=== PATIENT | female | born 1990 | race Caucasian/White ===

== ENCOUNTER 2025-02-13 19:36 | Emergency (ER) | payer MEDICARE, OTHER, SELFPAY ==
[2025-02-13 19:46] VITALS: BP 110/73
[2025-02-13 22:44] VITALS: BMI 22.5
[2025-02-13 22:45] VITALS: BP 116/72
--- NOTE | 2025-02-13 22:57 | ED.GENMED ---
History of Present Illness
General
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
Source: patient
Exam Limitations: none
Time Seen by Provider: 02/13/25 22:55
Nursing documentation reviewed up to this point in time: agreed with
History of Present Illness
History of Present Illness:
Note:
CHIEF COMPLAINT(S)
The patient presents with a painful bump in the gluteal region.
HISTORY OF PRESENT ILLNESS
The patient is a 35-year-old female with a past medical history of lymphoma in remission, skin cancer, ADHD, bipolar disorder, who presents to the emergency department today with concerns of painful lumps in her gluteal region which started
approximately 2 days ago. She describes the pain as intense, stating the bump is 'hard to sit on.' There is no associated fever, nausea, or vomiting. The patient reports burning upon urination for several days and believes she has a urinary tract
infection. She has been treating this infection with ibuprofen and has not been on antibiotic. She no longer follows with oncology. She denies any pain radiating to the back or elsewhere. The patient has a history of lymphoma, currently in
remission, and has not undergone any treatment for it recently. Patient reports that she takes dexamethasone to keep the lymphoma in remission. She reports no recent contact with sick individuals. She denies any hematuria. She denies any
unintentional weight loss or night sweats.
SOCIAL DETERMINANTS AFFECTING HEALTH
The patient reported using marijuana and ibuprofen for symptom relief.
PAST MEDICAL HISTORY
History of lymphoma, currently in remission. The patient has also had skin cancer removed.
MEDICATIONS
She mentions taking dexamethasone intermittently for cancer management.
PHYSICAL EXAM
Nursing notes reviewed and vital signs reviewed.
General: Patient is well appearing and in no acute distress; non-toxic. Appears older than stated age.
Skin: Warm and dry, no rashes or lesions
Head: Normocephalic, atraumatic
Eyes: Sclera non-icteric. EOMs intact.
Cardiac: Regular rate and rhythm, no murmurs
Peripheral Vascular: No lower extremity swelling or edema.
Pulm: Normal respiratory effort, no wheezes, rales, rhonchi
Abdomen: No abdominal tenderness to palpation, tender bilateral inguinal lymph lymph nodes
Neuro: CN II-XII intact, no focal neurologic deficits.
Psychiatric: Appropriate mood and affect.
PROBLEM LIST
- Acute: Painful bump in the inguinal region, burning with urination
- Chronic: Lymphoma (remission), history of skin cancer
PLAN
- Suspect groin mass secondary to reactive inguinal lymphadenopathy from suspected UTI, however considering patient's history of lymphoma we will obtain CT scan of the abdomen and pelvis
- Perform blood work and urinalysis.
- Consider applying a warm compress to the affected area for symptomatic relief.
DIFFERENTIAL DIAGNOSIS
The Differential Diagnosis includes, in no particular order and is not limited to:
1. Abscess
2. Inflamed lymph node
3. Cyst
4. Cellulitis
5. Reactive lymphadenopathy
6. Pilonidal cyst
7. Bartholins cyst
8. Muscle strain
9. Lipoma
10. Hematoma
CARE-UPDATE
02/14/25 - 12:39 am
Patient currently in CAT scan for further assessment, awaiting results
CHART REVIEW
Reviewed ER physician documentation from 07/22/2021, patient seen for cough and diagnosed with bronchitis
Reviewed procedural data from 08/02/2018 patient had her port removed
MDM/DISPOSITION
The patient is a 35-year-old female with a past medical history of lymphoma in remission, skin cancer, ADHD, bipolar disorder, who presents to the emergency department today with concerns of painful lumps in her gluteal region which started
approximately 2 days ago. Plan as above. Labs reviewed, CBC and CMP unremarkable. Urinalysis does show blood with few bacteria and leukocyte Estrace.
CAT scan reveals moderate adenopathy in the right external iliac chain and inguinal region with encinas fat stranding which may reflect cellulitis with lymphadenitis. On exam, there is no evidence of erythema or obvious signs of cellulitis. Suspect
reactive lymphadenopathy secondary to urinary tract infection. Will treat with Keflex. Although, considering patient's history of lymphoma, did stress the importance of repeat imaging to ensure resolution and advised the patient should follow-up
with her oncologist that she saw previously in the past. Based on chart review, there are concerns with some financial notations to care although patient does note that she does have insurance. She lacks a primary care provider. Did provide
follow-up with primary care and also place a case management consult so that she will be called and there will be assistance in facilitating outpatient follow-up. CAT scan also mentions a gallstone in the gallbladder and gallbladder wall thickening
however clinical suspicion for cholecystitis is low and there is normal LFTs and normal bili bilirubin. Patient stable for discharge. Discussed strict return precautions.
Past History
Past History
ED Past Medical History: Asthma, Cancer (Lymphoma), Psychiatric (bipolar) and Other (Lymphoma with lesions in her blood, bone, skin tumors treated with chemotherapy and radiation in and recurrent in 2017 with only one dose of chemotherapy
in 2017 thus far. States 'I'm cancer free.')
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
Social History
Tobacco: Smoker (3 ppd)
Alcohol: None
Drug: None
Personal: Single
Living: homeless
Employment: Public assistance
Family History
Family History: Other (n/c- no known fam hx of cancer per pt)
Review of Systems
Review of Systems
All Other Systems: ROS reviewed and negative except as documented in HPI and ROS
Phy Exam
Physical Exam
Physical Exam:
see hpi
Course
Orders/Labs/Results
Orders:
Orders
02/13/25 23:09
Ketorolac [Toradol] 15 mg IV NOW STA
02/13/25 23:10
Test Result ONCE
02/13/25 23:11
0.9% Sodium Chloride 500 ml [Nss] 500 ml IV BOLUS
02/13/25 23:25
Complete Blood Count/With Diff Urgent
Comprehensive Metabolic Panel Urgent
Lipase Urgent
, Urine Qualitative Screen [HCG, Urine Qualitative Screen] Urgent
Date Specimen was Collected: 02/13/25
Time Specimen was Collected: 23:16
Urinalysis Reflex To Culture Urgent
Date Specimen was Collected: 02/13/25
Time Specimen was Collected: 23:16
Urine Microscopic Reflex Cult Urgent
Urine Culture Urgent
LYLE Source: U
Specimen Description:
Date Specimen was Collected: 02/13/25
Time Specimen was Collected: 23:16
02/14/25
CT Abd/pelvis W Iv Cont Urgent
Reason For Exam: b/l inguinal lymphadenopathy, hx of lymphoma
02/14/25 02:04
Case Management Consult ONCE
Case Management Consult: Discharge Planning
Comment: -financial limitations
-facilitating outpatient follow up with oncology
-hx of lymphoma
-acute lymphadenitis today, will need repeat imaging
Abnormal Lab Results
02/13/25
23:25
Absolute Monos (auto) 0.7 H 10^3/uL
(0.1-0.6)
Monocytes % 9.4 H %
(1.7-9.3)
Glucose 100 H mg/dl
(70-99)
Ur Occult Blood Reflex 1+ A
(Negative)
Leukocyte Esterase Rfl 2+ A
(Negative)
Urine RBC 3-6 A /HPF
(0-2)
Urine Bacteria (Reflex) Few A
(Negative)
02/13/25 23:25
02/13/25 23:25
Vital Signs
Initial and Last Documented VS:
Initial Vital Signs
Temp Pulse Resp BP Pulse Ox
98.7 F 86 18 110/73 100
02/13/25 19:46 02/13/25 19:46 02/13/25 19:46 02/13/25 19:46 02/13/25 19:46
Last Documented Vital Signs
Temp Pulse Resp BP Pulse Ox
98.7 F 86 18 122/69 99
02/13/25 19:46 02/13/25 19:46 02/13/25 19:46 02/13/25 23:00 02/14/25 00:01
*Pulse Oximetry
SaO2: 100
Oxygen Mode of Delivery: Room air
Patient hypoxic: no
*Critical Care Note
Total Time (30-74mins, 75-104mins- exclusive of procedures): Not Applicable
ED Attending Note
-
Portions of this chart may have been created with voice recognition software.� Occasional wrong word or��sound alike� substitutions may have occurred due to the inherent limitations of voice recognition software.
Discharge Plan
Departure
Patient Disposition: Home (Routine Discharge)
Date of Disposition: 02/14/25
Time of Disposition: 02:12
Patient with high blood pressure during this ER visit?: No
Condition: Good
Discharge Problem:
Acute inguinal lymphadenitis, Urinary tract infection
Instructions: Urinary Tract Infection, Adult (DC), Swollen lymph nodes in adults
Prescriptions:
New
cephalexin 500 mg capsule
500 mg PO TID 7 Days Qty: 21 0RF
No Action
Bactrim:
1 tab PO MOWEFR
Depakote:
1 tab PO DAILY
Dexamethasone
1 tab PO MO
mupirocin 22 GM ointment
22 gm topical TID Qty: 1 0RF
ibuprofen 600 MG tablet
600 mg PO Q6 Qty: 20 0RF
sulfamethoxazole-trimethoprim 1 TABLET tablet
1 tab PO BID Qty: 10 0RF
mupirocin 22 GM ointment
22 gm TP TID Qty: 22 0RF
clindamycin palmitate HCl [Clindamycin Pediatric] 75 MG/5 ML recon soln
150 mg PO TID Qty: 200 0RF
doxycycline hyclate 100 MG capsule
100 mg PO BID Qty: 20 0RF
Referrals:
Ana Rosa Byrd MD [Active, Hematology / Oncology] - Call in 1-3 days for appt
Frank Cao DO [Active, Family Practice] - Follow up in 5-7 days
NONE,* [Family Provider, Internal Medicine]
Activity Restrictions/Additional Instructions:
Keflex has been sent to your pharmacy. Please take 1 tablet 3 times daily for 7 days.
As discussed, please follow-up with your primary oncologist for repeat imaging.
Please establish care with a primary care provider.
PLEASE RETURN TO THE EMERGENCY DEPARTMENT SHOULD YOU DEVELOP FEVERS OR CHILLS, NIGHT SWEATS, EXPECTED WEIGHT LOSS, INTRACTABLE NAUSEA OR VOMITING, CHEST PAIN OR SHORTNESS OF BREATH, FLANK PAIN, OR ANY OTHER SIGNS OR SYMPTOMS CONCERNING TO YOU.
Interventions
Interventions:
*Risk Screen - Suicide Last Done: 02/13/25 19:46
*General Assessment Last Done: 02/13/25 22:46
*Neglect/Abuse Screening Last Done: 02/13/25 19:46
*ED- Fall Risk Assessment Last Done: 02/13/25 22:46
*ED COVID-19 Vaccine History Last Done: 02/13/25 22:46
*Nursing Disposition Last Done: 02/14/25 02:31
ED-Female Genitourinary Assessment Last Done: 02/13/25 22:46
Discharge Date and Time
Discharge Date/Time: 02/14/25 02:35
Print Language: LATVIAN
[2025-02-13 23:00] VITALS: BP 122/69
[2025-02-13] MEDS: NSS 500 IV (23:28)
[2025-02-13] MEDS: TORADOL 15 MG IV (23:29)
[2025-02-13 23:43] LABS: Urine Character Clear (Clear)
[2025-02-13 23:44] LABS: Hematocrit 38.4 % (37.0-47.0); Hemoglobin 13.6 g/dL (12.0-16.0); Mean Corp Hgb Conc. 35.4 g/dL (33.0-37.0); Mean Corpuscular Volume 86.5 fL (81.0-99.0); Nucleated Red Blood Cells % 0 %; Platelet Count 166 10^3/uL (130-400); Red Cell Dist. Width 12.4 % (11.5-14.5)
[2025-02-13 23:47] LABS: HCG, Urine Qualitative Screen Negative
[2025-02-14 00:02] LABS: ALT (SGPT) 16 U/L (0-35); AST (SGOT) 16 U/L (14-36); Albumin 4.2 g/dl (3.5-5.0); Alkaline Phosphatase 57 U/L (38-126); Blood Urea Nitrogen 10 mg/dl (7-17); Calcium 9.1 mg/dl (8.4-10.2); Carbon Dioxide 27 mmol/L (22-30); Chloride 106 mmol/L (98-107); Estimated Creatinine Clearance 116 ml/min; Glucose 100 mg/dl (70-99); Lipase 49 U/L (23-300); Potassium 3.8 mmol/L (3.5-5.1); Sodium 137 mmol/L (135-145); Total Protein 6.5 g/dl (6.3-8.2); eGFR > 60.00
[2025-02-14 00:20] LABS: Urine Squamous Cell >30 /LPF (Few)
--- NOTE | 2025-02-14 13:22 | CM ---
CM attempted to reach patient via cell phone after discharge to follow up on consult. CM unable to leave VM as phone VM was not set up.
== END 2025-02-14 02:35 | disposition home or self-care (01) ==
LOC: EMR 19:36
PROVIDERS: Physician Assistant; EMERGENCY PHYSICIAN Emergency Medicine
DX: I88.9 Nonspecific lymphadenitis, unspecified (principal); N39.0 Urinary tract infection, site not specified; J45.909 Unspecified asthma, uncomplicated; F17.210 Nicotine dependence, cigarettes, uncomplicated; Z85.72 Personal history of non-Hodgkin lymphomas
CPT/HCPCS: 96374; 96361; 99284; 74177; 80053; 81003; 81015; 81025; 83690; 85025; 87086; Q9967